=== PATIENT | female | born 1980 | race Caucasian/White ===

== ENCOUNTER 2023-11-17 09:08 | Outpatient (RCR) | payer BC, SELFPAY | END 2023-11-17 23:59 | disposition home or self-care (01) | LOC: RPT 09:08 | PROVIDERS: ATTENDING PHYSICIAN Obstetrics & Gynecology Obstetrics; FAMILY PHYSICIAN Internal Medicine | DX: R10.2 Pelvic and perineal pain (principal); R27.8 Other lack of coordination; M62.81 Muscle weakness (generalized); Z73.6 Limitation of activities due to disability | CPT/HCPCS: 97162; 97530 ==

== ENCOUNTER 2023-12-01 14:15 | Outpatient (RCR) | payer BC, SELFPAY | END 2023-12-01 23:59 | disposition home or self-care (01) | LOC: RPT 14:15 | PROVIDERS: ATTENDING PHYSICIAN Obstetrics & Gynecology Obstetrics; FAMILY PHYSICIAN Internal Medicine | DX: M62.89 Other specified disorders of muscle (principal); O34.219 Maternal care for unspecified type scar from previous cesarean delivery; R10.2 Pelvic and perineal pain; M62.81 Muscle weakness (generalized); R27.8 Other lack of coordination | CPT/HCPCS: 97140; 97530 ==

== ENCOUNTER 2023-12-10 14:03 | Emergency (ER) | payer BC, SELFPAY ==
[2023-12-10 14:09] VITALS: BP 159/90
[2023-12-10 14:40] VITALS: BP 121/78
[2023-12-10 14:52] LABS: % Basophils 0.4 % (0-2); % Eosinophils 2.5 % (0-6); % Immature Granulocytes 0.1 % (0-0.5); % Lymphocytes 22.9 % (20.5-51.1); % Monocytes 9.1 % (1.7-9.3); Absolute Eosinophils 0.2 10^3/uL (0-0.7); Absolute Lymphocytes 1.7 10^3/uL (1.2-3.4); Absolute Monocytes 0.7 10^3/uL (0.1-0.6); Absolute Neutrophils 4.7 10^3/uL (1.4-6.5); Hematocrit 32.2 % (37.0-47.0); Hemoglobin 11.5 g/dL (12.0-16.0); Mean Corp Hgb Conc. 35.7 g/dL (33.0-37.0); Mean Corpuscular Hgb 31.2 pg (27.0-31.0); Mean Corpuscular Volume 87.3 fL (81.0-99.0); Mean Platelet Volume 10.7 fL (7.4-10.4); Nucleated Red Blood Cells % 0 %; Platelet Count 218 10^3/uL (130-400); Red Blood Cell Count 3.69 10^6/uL (4.20-5.40); Red Cell Dist. Width 13.4 % (11.5-14.5); White Blood Cell Count 7.2 10^3/uL (4.8-10.8)
[2023-12-10 15:00] VITALS: BP 115/63
[2023-12-10 15:01] LABS: ALT (SGPT) 23 U/L (0-35); AST (SGOT) 21 U/L (14-36); Albumin 3.7 g/dl (3.5-5.0); Alkaline Phosphatase 62 U/L (38-126); Blood Urea Nitrogen 17 mg/dl (7-17); Calcium 9.3 mg/dl (8.4-10.2); Carbon Dioxide 22 mmol/L (22-30); Chloride 112 mmol/L (98-107); Glucose 102 mg/dl (70-99); Potassium 4.3 mmol/L (3.5-5.1); Sodium 141 mmol/L (135-145); Total Bilirubin 0.2 mg/dl (0.2-1.3); Total Protein 6.1 g/dl (6.3-8.2); eGFR > 60.00
[2023-12-10 16:13] VITALS: BP 120/67
--- NOTE | 2023-12-10 20:32 | ED.GENMED ---
History of Present Illness
General
Chief Complaint: Vaginal Bleeding
Source: patient
Exam Limitations: none
Time Seen by Provider: 12/10/23 14:18
Nursing documentation reviewed up to this point in time: agreed with
History of Present Illness
History of Present Illness:
Patient to ED wtih complaint of heavy vaginal bleeding. States she is 3mos post Csection. This is her first period since delivery. Denies passing clots. Feels weak. Brought self to ED for eval
Phy Exam
General Physical Exam
General Presentation: well appearing and no apparent distress
General age: appears stated age
General Skin: warm and dry
General Habitus: normal
General Mental: alert
Gastrointestinal Exam
Gastrointestinal Exam: normal bowel sounds, non tender, soft, no organomegaly and non distended
Genitourinary Exam Female
Exam Female: vaginal bleeding (heavy vaginal bleeding)
Musculoskeletal Exam
Musculoskeletal Exam: full ROM and neuro vasc intact
Skin Exam
Skin Exam: normal color
Psychiatric Exam
Psychiatric Exam: normal mood/affect
Course
Orders/Labs/Results
Orders:
Orders
12/10/23 14:19
Pelvis (Non Obstetric) US [US Pelvis Only (non-obstetric)] Urgent
Comment:
Reason For Exam: vaginal bleeding
12/10/23 14:41
Complete Blood Count/With Diff Urgent
Comprehensive Metabolic Panel Urgent
Abnormal Lab Results
12/10/23
14:41
RBC 3.69 L 10^6/uL
(4.20-5.40)
Hgb 11.5 L g/dL
(12.0-16.0)
Hct 32.2 L %
(37.0-47.0)
MCH 31.2 H pg
(27.0-31.0)
MPV 10.7 H fL
(7.4-10.4)
Absolute Monos (auto) 0.7 H 10^3/uL
(0.1-0.6)
Chloride 112 H mmol/L
(98-107)
Glucose 102 H mg/dl
(70-99)
Total Protein 6.1 L g/dl
(6.3-8.2)
12/10/23 14:41
12/10/23 14:41
Vital Signs
Initial and Last Documented VS:
Initial Vital Signs
Temp Pulse Resp BP Pulse Ox
98.2 F 86 16 159/90 98
12/10/23 14:09 12/10/23 14:09 12/10/23 14:09 12/10/23 14:09 12/10/23 14:09
Last Documented Vital Signs
Temp Pulse Resp BP Pulse Ox
98.2 F 76 14 120/67 97
12/10/23 14:09 12/10/23 16:30 12/10/23 16:30 12/10/23 16:13 12/10/23 16:30
*Radiology
Radiology exam reviewed: radiology read reviewed
*Pulse Oximetry
Patient hypoxic: no
*Critical Care Note
Total Time (30-74mins, 75-104mins- exclusive of procedures): Not Applicable
ED Attending Note
-
Portions of this chart may have been created with voice recognition software.� Occasional wrong word or��sound alike� substitutions may have occurred due to the inherent limitations of voice recognition software.
Discharge Plan
Departure
Patient Disposition: Home (Routine Discharge)
Date of Disposition: 12/10/23
Time of Disposition: 16:43
Patient with high blood pressure during this ER visit?: No
Covid-19: Not Applicable
Discharge Problem:
Episode of heavy vaginal bleeding
Instructions: Heavy Periods (DC)
Prescriptions:
No Action
metoclopramide HCl 5 mg tablet
5 - 10 mg PO AC PRN (Reason: nausea and vomiting) Qty: 30 0RF
Referrals:
Isabelle Merchant MD [Family Provider] - Follow up in 2-3 days
Activity Restrictions/Additional Instructions:
Follow up with your ambulance paramedic this week.
Interventions
Interventions:
*Risk Screen - Suicide Last Done: 12/10/23 14:44
*General Assessment Last Done: 12/10/23 14:44
*Neglect/Abuse Screening Last Done: 12/10/23 14:44
ED- Fall Risk Assessment Last Done: 12/10/23 16:49
*ED COVID-19 Vaccine History Last Done: 12/10/23 14:09
*Nursing Disposition Last Done: 12/10/23 16:49
ED-Female Genitourinary Assessment Last Done: 12/10/23 14:44
Discharge Date and Time
Discharge Date/Time: 12/10/23 16:59
Print Language: MACEDONIAN
== END 2023-12-10 16:59 | disposition home or self-care (01) ==
LOC: EMR 14:03
PROVIDERS: Nurse Practitioner; EMERGENCY PHYSICIAN Emergency Medicine; FAMILY PHYSICIAN Internal Medicine
DX: N93.9 Abnormal uterine and vaginal bleeding, unspecified (principal)
CPT/HCPCS: 99284; 76856; 80053; 85025

== ENCOUNTER 2024-01-05 14:18 | Outpatient (RCR) | payer BC, SELFPAY | END 2024-01-05 23:59 | disposition home or self-care (01) | LOC: RPT 14:18 | PROVIDERS: ATTENDING PHYSICIAN Obstetrics & Gynecology Obstetrics; FAMILY PHYSICIAN Internal Medicine | DX: R10.2 Pelvic and perineal pain (principal); M62.89 Other specified disorders of muscle; M62.81 Muscle weakness (generalized); R27.8 Other lack of coordination | CPT/HCPCS: 97140; 97530 ==

== ENCOUNTER 2024-02-16 09:06 | Outpatient (RCR) | payer BC, SELFPAY | END 2024-02-16 23:59 | disposition home or self-care (01) | LOC: RPT 09:06 | PROVIDERS: ATTENDING PHYSICIAN Obstetrics & Gynecology Obstetrics; FAMILY PHYSICIAN Internal Medicine | DX: M62.89 Other specified disorders of muscle (principal); R10.2 Pelvic and perineal pain; Z73.6 Limitation of activities due to disability | CPT/HCPCS: 97140; 97530 ==

== ENCOUNTER 2024-02-28 10:14 | Outpatient (RCR) | payer BC, SELFPAY | END 2024-02-28 23:59 | disposition home or self-care (01) | LOC: RPT 10:14 | PROVIDERS: ATTENDING PHYSICIAN Obstetrics & Gynecology Obstetrics; FAMILY PHYSICIAN Internal Medicine | DX: M62.89 Other specified disorders of muscle (principal); R10.2 Pelvic and perineal pain; Z73.6 Limitation of activities due to disability; M62.81 Muscle weakness (generalized); R27.8 Other lack of coordination | CPT/HCPCS: 97140; 97530 ==

== ENCOUNTER 2024-04-12 08:47 | Outpatient (RCR) | payer BC, SELFPAY | END 2024-04-12 23:59 | disposition home or self-care (01) | LOC: RPT 08:47 | PROVIDERS: ATTENDING PHYSICIAN Obstetrics & Gynecology Obstetrics; FAMILY PHYSICIAN Internal Medicine | DX: O34.219 Maternal care for unspecified type scar from previous cesarean delivery (principal); M62.89 Other specified disorders of muscle; R10.2 Pelvic and perineal pain; M62.81 Muscle weakness (generalized); R27.8 Other lack of coordination; Z73.6 Limitation of activities due to disability | CPT/HCPCS: 97140; 97530 ==

== ENCOUNTER 2024-04-26 10:06 | Outpatient (RCR) | payer BC, SELFPAY | END 2024-04-26 23:59 | disposition home or self-care (01) | LOC: RPT 10:06 | PROVIDERS: ATTENDING PHYSICIAN Obstetrics & Gynecology Obstetrics; FAMILY PHYSICIAN Internal Medicine | DX: M62.89 Other specified disorders of muscle (principal); R10.2 Pelvic and perineal pain; Z73.6 Limitation of activities due to disability; M62.81 Muscle weakness (generalized); R27.8 Other lack of coordination | CPT/HCPCS: 97140; 97530 ==

== ENCOUNTER → 2024-06-21 08:27 | Outpatient (REF) | payer BC, SELFPAY | LOC: HWRAD 08:27 | PROVIDERS: ATTENDING PHYSICIAN Obstetrics & Gynecology; FAMILY PHYSICIAN Internal Medicine | DX: N93.9 Abnormal uterine and vaginal bleeding, unspecified (principal) | CPT/HCPCS: 76830; 76856 ==

== ENCOUNTER 2025-03-27 15:54 | Emergency (ER) | payer BC, SELFPAY ==
[2025-03-27 15:58] VITALS: BP 122/73
--- NOTE | 2025-03-27 18:01 | ED.GENMED ---
History of Present Illness
General
Chief Complaint: Skin Surface Trauma
Source: patient
Exam Limitations: none
Time Seen by Provider: 03/27/25 17:33
Nursing documentation reviewed up to this point in time: agreed with
History of Present Illness
History of Present Illness:
45-year-old female with history as noted presents for evaluation of bleeding from a small abrasion/wound on her toe. Patient was clipping her toenails 3 days ago and accidentally clipped a small piece of skin on the tip of her toe. She has had
difficulty controlling bleeding on the toe despite holding pressure she says that every time she moves around it starts to bleed again. Came to the ER for assessment. She is not on blood thinners.
Review of Systems
Review of Systems
All Other Systems: ROS reviewed and negative except as documented in HPI and ROS
Skin: Reports other (Bleeding from the small skin wound)
Phy Exam
Physical Exam
Physical Exam:
General: Well appearing and non-toxic
HEENT: protecting airway
Neck: appears supple
CV: No evidence of cyanosis
Resp: No accessory muscle use
Abd: Non-distended
Extremities: No deformities
Neuro: Alert
Psych: Normal affect
Skin: On the tip of the left big toe she has a tiny punctate abrasion/wound with slow steady bleeding
Scores
Heart Failure Risk
Heart Failure Risk Score: Not Applicable
Heart Score for Chest Pain Patients
STEMI patient?: Not applicable
Withdrawal Assessment of Alcohol
Withdrawal Assessment Completed?: Not applicable
Course
Vital Signs
Initial and Last Documented VS:
Initial Vital Signs
Temp Pulse Resp BP Pulse Ox
36.5 C 79 20 122/73 100
03/27/25 15:58 03/27/25 15:58 03/27/25 15:58 03/27/25 15:58 03/27/25 15:58
Last Documented Vital Signs
Temp Pulse Resp BP Pulse Ox
36.5 C 79 20 122/73 100
03/27/25 15:58 03/27/25 15:58 03/27/25 15:58 03/27/25 15:58 03/27/25 15:58
Procedures
Laceration Closure
First Toe:
Status of Wound: clean
Size of Wound in cm: 0.5
Description of Wound Edges: sharp
Preparation: cleaned with saline
Anesthesia: 1% Lidocaine
Revision/Debridement: routine- no revision
Type of Closure: single layer closure
Skin Closure Material: 5-0 vicryl
Number of sutures: 2
MDM/Problems Addressed
Differential Diagnosis Includes:
Bleeding from tiny toe wound
MDM/Problems Addressed:
45-year-old female presents with tiny wound on the tip of her left big toe that has been intermittently bleeding�she sustained the small wound when she was clipping her toenails. Attempted direct pressure but unable to achieve good hemostasis this
way and so 2 simple interrupted sutures were placed with good hemostasis. Advised patient regarding wound care. Stable for discharge. All questions answered.
*Pulse Oximetry
SaO2: 100
Oxygen Mode of Delivery: Room air
Patient hypoxic: no (100%)
*Critical Care Note
Total Time (30-74mins, 75-104mins- exclusive of procedures): Not Applicable
Data Reviewed
Source: patient
ED Attending Note
-
Portions of this chart may have been created with voice recognition software.� Occasional wrong word or��sound alike� substitutions may have occurred due to the inherent limitations of voice recognition software.
Discharge Plan
Departure
Patient Disposition: Home (Routine Discharge)
Date of Disposition: 03/27/25
Time of Disposition: 18:00
Patient with high blood pressure during this ER visit?: No
Discharge Problem:
Bleeding from wound
Instructions: Wound Care (DC)
Prescriptions:
No Action
metoclopramide HCl 5 mg tablet
5 - 10 mg PO AC PRN (Reason: nausea and vomiting) Qty: 30 0RF
Activity Restrictions/Additional Instructions:
Thank you for visiting the Emergency Department at [facility].
1. Please schedule a follow up appointment as directed. Call first thing tomorrow morning to make an appointment.
2. If indicated, please take your medications as instructed and indicated on discharge paperwork.
3. If any of your symptoms do not improve, or persist, or become more severe within 6-12 hours, please return to the emergency department for further care.
4. Please return to the emergency department if you develop a headache, neck pain/stiffness, fever greater than 100.4F, chest pain, shortness of breath, persistent nausea, vomiting, slurred speech, difficulty walking, numbness/tingling, weakness,
signs of infection or any other symptoms that are worrisome to you.
Please call [phone] if you have any questions.
Interventions
Interventions:
*Risk Screen - Suicide Last Done: 03/27/25 15:58
*General Assessment Last Done: 03/27/25 15:58
*Neglect/Abuse Screening Last Done: 03/27/25 15:58
Discharge Date and Time
Print Language: SYRIAN
== END 2025-03-27 18:08 | disposition home or self-care (01) ==
LOC: EMR 15:54
PROVIDERS: EMERGENCY PHYSICIAN Emergency Medicine; FAMILY PHYSICIAN Internal Medicine
DX: S91.132A Puncture wound without foreign body of left great toe without damage to nail, initial encounter (principal); W27.8XXA Contact with other nonpowered hand tool, initial encounter
CPT/HCPCS: 99282